=== PATIENT | female | born 1990 | race African-American/Black ===

== ENCOUNTER 2018-07-20 10:08 | Inpatient (IN) | payer OTHER ==
[2018-07-20] MEDS ORDERED: DINOPROSTONE 10 MG VAGINAL SUPPOSITORY VG ONE (11:15)
[2018-07-20] MEDS: DEXTROSE 5%-LACTATED RINGERS 1,000 ML IV SCH ×2 (11:55→17:00)
[2018-07-20 12:00] LABS: BASO % 0.8 % (0-2.0); EOS % 0.8 % (0-4.5); HEMATOCRIT 38.4 % (32.4-45.2); HEMOGLOBIN 13.8 GM/dL (10.7-15.3); LYMPH % 20.7 % (8-40); MCHC 36.1 g/dl (32.0-36.0); MEAN CELL VOLUME 86.1 fl (80-96); MEAN PLT VOLUME 9.7 fl (7.5-11.1); MONO % 8.2 % (3.8-10.2); NEUT % 69.5 % (42.8-82.8); PLATELET COUNT 202 K/MM3 (134-434); RBC 4.46 M/mm3 (3.60-5.2); RDW 13.8 % (11.6-15.6); WHITE BLOOD COUNT 7.6 K/mm3 (4.0-10.0)
[2018-07-20 12:15] LABS: INR 0.96 (0.83-1.09); PROTHROMBIN TIME (PATIENT) 10.9 SEC (9.7-13.0)
[2018-07-20 12:17] LABS: ACTIVATED PTT 30.5 SECONDS (25.2-36.5)
[2018-07-20] MEDS ORDERED: BUTORPHANOL TARTRATE 1 MG/ML VIAL IVPB ONE (12:28)
[2018-07-20] MEDS ORDERED: PROMETHAZINE HCL 25 MG/1 ML VIAL IVPUSH ONE (12:28)
[2018-07-20 12:37] VITALS: BMI 31.9
[2018-07-20 12:47] LABS: ANION GAP 13 MMOL/L (8-16); BLOOD UREA NITROGEN 9 mg/dL (7-18); CALCIUM 8.2 mg/dL (8.5-10.1); CHLORIDE 107 mmol/L (98-107); CO2 20 mmol/L (21-32); CREATININE 0.7 mg/dL (0.55-1.02); GLUCOSE,RANDOM 102 mg/dL (74-106); POTASSIUM 3.7 mmol/L (3.5-5.1); SODIUM 140 mmol/L (136-145)
--- NOTE | 2018-07-20 13:33 | HP ---
Past Medical History - Primary Care Physician PCP:: Abril Cruz - Admission Chief Complaint: 28 yrs , 41.1 weeks by sono & 42 weeks by dates admitted for induction of labor . post term pregn monitored by NST & BPP History of Present Illness: pnc transferred from [facility] . Registered at 31 weeks gestation at 2, [facility] early sono 11/28/17 - 7.2 wks, edc 07/15/18 12/29/17 -12.2 wks edc 07/12/18 03/10/18-22.2 weeks edc 07/12/18 work UP: 05/11/18 ; AB pos, Rpr nr, Hbsag neg, Rubella immune, Sickle neg, varicella iimune, hiv nr, Pap NILM, , hpv, gc/ct neg , quantiferon neg, GCT 106 06/26/2018 h/h 13.7/40.0, plt 200,gc/ct neg, GBS neg . 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 Weeks Gestation by Dates: 42.5 ...EDC by Dates: 06/30/18 ...EDC by Sono: 07/12/18 (41.1 weeks ( 03/10/18--22.2weeks) ) Heme/Onc: No: Anemia Infectious Disease: No: AIDS, HIV, STD's, Tuberculosis Psych: Yes: Other (denies h/o mental illness) - Past Surgical History Past Surgical History: Yes: None Hx Myomectomy: No Hx Transabdominal Cerclage: No - Smoking History Smoking history: Never smoked Have you smoked in the past 12 months: No - Alcohol/Substance Use Hx Alcohol Use: No History of Substance Use: reports: None Home Medications - Allergies Allergies/Adverse Reactions: Allergies Allergy/AdvReac Type Severity Reaction Status Date / Time No Known Allergies Allergy Verified 07/20/18 10:55 - Home Medications Home Medications: Ambulatory Orders Ferrous Sulfate 325 mg PO DAILY 07/18/18 Vitamins (Sjr) - 1 mg PO DAILY 07/18/18 Physical Exam - Maternity Vital Signs: Vital Signs Temperature 98.7 F 07/20/18 11:55 Pulse Rate 80 07/20/18 11:55 Respiratory Rate 17 07/20/18 11:55 Blood Pressure 129/80 07/20/18 11:55 O2 Sat by Pulse Oximetry (%) Selected Entries 07/20/18 10:57 Weight 198 lb Constitutional: Yes: Well Nourished, No Distress Eyes: Yes: WNL HENT: Yes: WNL, Normocephalic Neck: Yes: WNL Cardiovascular: Yes: WNL Breast(s): Yes: WNL - Abdominal Exam/OB Fundal Height: 40 Number of Fetuses: Single Presentation: Vertex Contractions: No Heart Rate (range): 155 Heart Rate Location: [facility] Category: I Accelerations: Uniform Decelerations: None - Vaginal Exam/OB Vaginal Bleediing: No Speculum Exam: No Dilatation (cm): close, Effacement (%): unefface Amniotic Membrane Status: Intact Presentation: Vertex/Position Station: -3 (ant asynlytism) - Physical Exam Musculoskeletal: Yes: WNL Extremities: Yes: WNL. No: Calf Tenderness Edema: LLE: 1+, RLE: 1+ ...Motor Strength: WNL Psychiatric: Yes: WNL, Alert, Oriented - Labs Lab Results: CBC, BMP 07/20/18 11:55 07/20/18 11:55 Laboratory Tests 07/20/18 07/20/18 11:55 11:55 PT with INR 10.90 INR 0.96 PTT (Actin FS) 30.5 RPR Titer Nonreactive Problem List - Problems (1) Post-term , 40-42 weeks of gestation Code(s): O48.0 - POST-TERM (2) Elective induction of labor planned Code(s): UOW6093 - Assessment/Plan 28 yrs , 41.1 weeks by sono is admitted for Induction of labor .GBS neg Plan cervidil inserted at 11.15 AM . trial of vaginal delivery stadol + phenrgan & or epidural for labor analgesia
[2018-07-20] MEDS ORDERED: OXYTOCIN 30 UNITS in 0.9% NS 30 UNIT/500 ML INFUS.BAG IVPB ONE (20:24)
--- NOTE | 2018-07-20 23:12 | PN ---
Progress Note (short form) - Note Progress Note: cervidil removed at 11.00PM cx 1-2 cm/post/50 %/Mi , vx -3 uc 3-5 min FHR 155 bpm cat-1 Selected Entries 07/20/18 22:00 Temperature 98.8 F Pulse Rate 63 Blood Pressure 145/86 Blood Pressure 105 Mean Problem List - Problems (1) Post-term , 40-42 weeks of gestation Code(s): O48.0 - POST-TERM (2) Elective induction of labor planned Code(s): LNY3330 -
[2018-07-20] MEDS ORDERED: SODIUM PHOSPHATE/NA BIPHOS 133 ML ENEMA PR ONE (23:16)
[2018-07-20 23:51] LABS: URINE APPEARANCE CLEAR; URINE BILIRUBIN NEGATIVE (<2.0 mg/dL); URINE COLOR LTYELLOW; URINE GLUCOSE (UA) NEGATIVE (NEGATIVE); URINE KETONE NEGATIVE (NEGATIVE); URINE LEUK ESTERASE NEGATIVE (NEGATIVE); URINE NITRITE NEGATIVE (NEGATIVE); URINE PROTEIN NEGATIVE (NEGATIVE); URINE UROBILINOGEN NEGATIVE mg/dL (0.2-1.0)
[2018-07-21] MEDS ORDERED: OXYTOCIN 30 UNITS in 0.9% NS 30 UNIT/500 ML INFUS.BAG IVPB ONE (00:21)
[2018-07-21] MEDS ORDERED: OXYTOCIN 30 UNITS in 0.9% NS 30 UNIT/500 ML INFUS.BAG IVPB SCH (00:30)
--- NOTE | 2018-07-21 06:39 | PN ---
Progress Note, Labor Vaginal Exam #1 Labor Exam Date: 07/21/18 Labor Exam Time: 06:30 Heart Rate (range): 140 Dilatation: 4 Effacement (%): 90 Amniotic Membrane Status: Intact Presentation: Vertex/Position Station: -2 Remarks: uc 2-3 min fhr cat-1 . epidural labor analgesia Vaginal Exam #2 Labor Exam Date: 07/21/18 Labor Exam Time: 14:05 Heart Rate (range): 140 Dilatation: 9 Effacement (%): 100 Amniotic Membrane Status: Ruptured (AROM clear) Presentation: Vertex/Position Station: -1 (-1/0) Remarks: FHR cat-1 uc 3-4-5 min epidural received at 7.30 AM Selected Entries 07/21/18 07/21/18 07/21/18 13:00 13:15 13:30 Temperature 97.7 F Pulse Rate 64 66 Respiratory 18 Rate Blood Pressure 117/69 122/[address] trial of labor Vaginal Exam #3 Labor Exam Date: 07/21/18 Labor Exam Time: 16:07 Heart Rate (range): 140 Dilatation: rt rim Effacement (%): 100 Amniotic Membrane Status: Ruptured Presentation: Vertex/Position Station: +2 Remarks: fhr cat-1 uc q2 min Selected Entries 07/21/18 16:00 Pulse Rate 85 Respiratory 20 Rate Blood Pressure 137/87 O2 Sat by Pulse 100 Oximetry (%) Vaginal Exam #4 Labor Exam Date: 07/21/18 Labor Exam Time: 17:00 Heart Rate (range): 150 Dilatation: 10 Effacement (%): 100 Amniotic Membrane Status: Ruptured Presentation: Vertex/Position Station: +2 (+2/+3) Remarks: fhr cat-1 uc q 2-3 min pt pushing , not effectively , pt advised not to push, wait for passive descent Selected Entries 07/21/18 17:30 Pulse Rate 80 Blood Pressure 146/92
[2018-07-21] MEDS: ELECTROLYTE-148 SOLN 1,000 ML IV SCH ×2 (06:40→14:30)
[2018-07-21] MEDS ORDERED: FENTANYL/BUPIVACAINE/NS/PF - PCEA - 50 ML DISP.SYRIN EP ONE ×3 (06:53→14:47)
[2018-07-21] MEDS ORDERED: NALOXONE HCL 0.4 MG/ML VIAL IVPUSH PRN (07:46)
[2018-07-21] MEDS ORDERED: FENTANYL/BUPIVACAINE/NS/PF - PCEA - 50 ML DISP.SYRIN EP SCH (08:00)
[2018-07-21] MEDS ORDERED: OXYTOCIN 20 UNITS in 0.9% NS 20 UNIT/1,000 ML INFUS.BAG IV ONE ×2 (09:19→20:00)
[2018-07-21] MEDS ORDERED: BUPIVACAINE HCL/PF 0.25% (2.5MG/ML) 10 ML VIAL ONE (14:45)
[2018-07-21] MEDS ORDERED: BENZOCAINE 28 GM HEMORRHOIDAL OINTMENT TP PRN (18:23)
[2018-07-21] MEDS ORDERED: BISACODYL 10 MG SUPP.RECT RC PRN (18:23)
[2018-07-21] MEDS ORDERED: oxyCODONE HCL 5 MG TABLET PO PRN (18:23)
[2018-07-21] MEDS ORDERED: METHYLERGONOVINE MALEATE 0.2 MG/1 ML AMP IM PRN (18:23)
[2018-07-21] MEDS ORDERED: IBUPROFEN 600 MG TABLET (FP) PO PRN (18:23)
[2018-07-21] MEDS ORDERED: BENZOCAINE 20% 57 GM BOTTLE TP PRN (18:23)
[2018-07-21] MEDS ORDERED: ACETAMINOPHEN 325 MG TABLET (FP) PO PRN (18:23)
[2018-07-21] MEDS ORDERED: WITCH HAZEL 50% (TUCKS) 40 PAD/JAR PAD TP PRN (18:23)
[2018-07-21] MEDS ORDERED: OXYTOCIN 20 UNITS in 0.9% NS 20 UNIT/1,000 ML INFUS.BAG IV SCH (18:30)
--- NOTE | 2018-07-21 18:32 | PN ---
Delivery - Delivery Vaginal Delivery: No Problems, Spontaneous (baby Girl delievered from [place] position, immediate nasal & oral suction was done ,shoulder delievered without difficulty. placenta & membranes delievered completley. 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 GBS neg 07/20/18 Cervidil inserted 07/21/18 pitocin started epidural labor analgesia was given intrapartum course uneventful
[2018-07-21 18:42] LABS: ARTERIAL BLOOD GAS BASE EXCESS -5.2 meq/l (-2-2); ARTERIAL BLOOD GAS PCO2 55.2 mmHg (35-45)
[2018-07-21 18:46] LABS: ARTERIAL BLOOD GAS PO2 12.3 mmHg (80-100); ARTERIAL BLOOD GAS pH 7.24 (7.35-7.45)
[2018-07-21 18:47] LABS: VENOUS PH 7.35 (7.32-7.42)
[2018-07-21 18:48] LABS: VENOUS PC02 40.6 mmHg (38-52)
--- NOTE | 2018-07-22 08:15 | PN ---
Post Progress Note - Subjective Subjective: no c/o headache cramps bleeding yesterday was heavy but today it is less Post Day: 1 Type of Delivery: Vital Signs: Vital Signs Temperature 98.4 F 07/22/18 03:58 Pulse Rate 72 07/22/18 03:58 Respiratory Rate 18 07/22/18 03:58 Blood Pressure 132/79 07/22/18 03:58 O2 Sat by Pulse Oximetry (%) 100 07/21/18 18:45 Selected Entries 07/21/18 07/21/18 07/21/18 19:30 19:45 20:25 Blood Pressure 142/89 132/90 145/89 07/22/18 00:12 Blood Pressure 142/78 Breast Exam: Yes: Soft, Other (BF ). No: Engorged Uterus: Yes: Fundus Firm, Fundus above umbilicus, Non-tender Lochia: Yes: Rubra Lochia, amount: Moderate Extremities: Yes: Calves non-tender Perineum: Yes: Intact Activity: Ambulating - Labs Labs: CBC WBC 7.6 K/mm3 (4.0-10.0) 07/20/18 11:55 RBC 4.46 M/mm3 (3.60-5.2) 07/20/18 11:55 Hgb 13.8 GM/dL (10.7-15.3) 07/20/18 11:55 Hct 38.4 % (32.4-45.2) 07/20/18 11:55 MCV 86.1 fl (80-96) 07/20/18 11:55 MCH 31.0 pg (25.7-33.7) 07/20/18 11:55 MCHC 36.1 g/dl (32.0-36.0) H 07/20/18 11:55 RDW 13.8 % (11.6-15.6) 07/20/18 11:55 Plt Count 202 K/MM3 (134-434) 07/20/18 11:55 MPV 9.7 fl (7.5-11.1) 07/20/18 11:55 Absolute Neuts (auto) 5.3 K/mm3 (1.5-8.0) 07/20/18 11:55 Neutrophils % 69.5 % (42.8-82.8) 07/20/18 11:55 Lymphocytes % 20.7 % (8-40) 07/20/18 11:55 Monocytes % 8.2 % (3.8-10.2) 07/20/18 11:55 Eosinophils % 0.8 % (0-4.5) 07/20/18 11:55 Basophils % 0.8 % (0-2.0) 07/20/18 11:55 Nucleated RBC % 0 % (0-0) 07/20/18 11:55 Problem List - Problems (1) Post-term , 40-42 weeks of gestation Code(s): O48.0 - POST-TERM (2) Elective induction of labor planned Code(s): MXT2114 - (3) Normal vaginal delivery Code(s): O80 - ENCOUNTER FOR FULL-TERM UNCOMPLICATED DELIVERY (4) Encounter for visit Code(s): Z39.2 - ENCOUNTER FOR ROUTINE FOLLOW-UP Assessment/Plan intrapartum & immediate pp slight elevation of BP was noted , possible because she was anxious . UA neg for proteinuria now BP wnl , pt is calm. Labs pending discharge tomorrow.
[2018-07-22 08:31] LABS: BASO % 0.4 % (0-2.0); EOS % 0.3 % (0-4.5); HEMOGLOBIN 10.7 GM/dL (10.7-15.3); LYMPH % 15.8 % (8-40); MCH 30.6 pg (25.7-33.7); MCHC 35.8 g/dl (32.0-36.0); MEAN CELL VOLUME 85.6 fl (80-96); MEAN PLT VOLUME 9.3 fl (7.5-11.1); MONO % 7.7 % (3.8-10.2); NEUT % 75.8 % (42.8-82.8); PLATELET COUNT 158 K/MM3 (134-434); RDW 13.6 % (11.6-15.6); WHITE BLOOD COUNT 12.1 K/mm3 (4.0-10.0)
[2018-07-22] MEDS: FERROUS SO4 325 MG TABLET (FP) PO SCH ×2 (08:42→17:26)
[2018-07-22 08:56] LABS: ALBUMIN 2.3 g/dl (3.4-5.0); ANION GAP 7 MMOL/L (8-16); BILIRUBIN,TOTAL 1.4 mg/dL (0.2-1.0); BLOOD UREA NITROGEN 6 mg/dL (7-18); CALCIUM 8.1 mg/dL (8.5-10.1); CHLORIDE 108 mmol/L (98-107); CO2 23 mmol/L (21-32); CREATININE 0.6 mg/dL (0.55-1.02); GLUCOSE,RANDOM 66 mg/dL (74-106); POTASSIUM 3.9 mmol/L (3.5-5.1); SGOT/AST 25 U/L (15-37); SGPT/ALT 17 U/L (12-78); SODIUM 138 mmol/L (136-145); TOT PROT 4.9 g/dl (6.4-8.2); URIC ACID 3.2 mg/dL (2.6-7.2)
[2018-07-22 08:57] LABS: ALK PHOS 88 U/L (45-117)
[2018-07-22] MEDS: PRENATAL VITAMINS W/ FOLIC ACID TABLET (FP) PO SCH ×2 (09:43→10:00)
[2018-07-22] MEDS ORDERED: DIPHTH,PERTUSS(ACELL),TET 0.5 ML DISP.SYRIN IM ONE (10:00)
[2018-07-22] MEDS ORDERED: SENNOSIDES/DOCUSATE COMBO (SENNA PLUS) TABLET (UD) PO PRN (22:00)
[2018-07-23 08:57] VITALS: BP 126/81; PULSE 63; TEMP 98.3
[2018-07-23] MEDS: FERROUS SO4 325 MG TABLET (FP) PO SCH (09:08)
[2018-07-23] MEDS: PRENATAL VITAMINS W/ FOLIC ACID TABLET (FP) PO SCH (09:08)
--- NOTE | 2018-07-23 10:14 | DS ---
Physical Exam-[employer]ER Vital Signs: Vital Signs Temperature 98.3 F 07/23/18 08:53 Pulse Rate 63 07/23/18 08:53 Respiratory Rate 20 07/23/18 08:53 Blood Pressure 126/81 07/23/18 08:53 O2 Sat by Pulse Oximetry (%) 100 07/22/18 08:49 Constitutional: Yes: Well Nourished Eyes: Yes: Conjunctiva Clear HENT: Yes: Atraumatic Neck: Yes: Supple Cardiovascular: Yes: Regular Rate and Rhythm Respiratory: Yes: Regular Gastrointestinal: Yes: Normal Bowel Sounds External Genitalia: Yes: Normal Vaginal Exam: Yes: Normal Cervix: Yes: Normal Uterus: Yes: Firm ....Post : Yes: Uterus firm Breast(s): Yes: WNL Musculoskeletal: Yes: WNL Extremities: Yes: WNL Neurological: Yes: Alert, Oriented ...Motor Strength: WNL Psychiatric: Yes: Alert, Oriented Labs: CBC, BMP 07/22/18 07:45 07/22/18 07:45 Delivery - Delivery Vaginal Delivery: No Problems, Spontaneous (baby Girl delievered from [place] position, immediate nasal & oral suction was done ,shoulder delievered without difficulty. placenta & membranes delievered completley. 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: No Gender: Female Weight: 7 lb Position: Left, OA Total Hours ROM (Hrs/Mins): 3hrs 50min - 1 Minute Total Score: 9 5 Minutes Total Score: 9 - Feeding Plan Initial Plan: Exclusive throughout hospitalization Discharge Summary Reason For Visit: CERVICAL INDUCTION Current Active Problems Elective induction of labor planned (Acute) Encounter for visit (Acute) Normal vaginal delivery (Acute) Post-term , 40-42 weeks of gestation (Acute) Procedures: Principal: Normal spontaneous vaginal delivery Hospital Course: Routine care Condition: Stable - Instructions Diet, Activity, Other Instructions: Post Instructions DIET: Continue good diet high in protein, calcium, and iron rich foods. Drink at least eight (8) glasses of water daily in addition to other fluids. ct Regular diet MEDICATIONS: Continue vitamins and iron as previously directed. Motrin and Tylenol may be taken for minor discomfort. ACTIVITY: Mild to moderate exercise may be started in two (2) weeks. Take frequent rest periods. Resume normal activity after six (6) week check up. WOUND CARE OF OPERATIVE SITE: Continue use of perineal bottle until vaginal discharge stops. Keep area clean. Shower daily. Keep abdominal wound dry. Report any drainage or redness to physician. Tub baths, tampons and douches are not permitted for [address] Breast feeding & or Bottle feeding BREAST CARE: (For those that are not breast feeding): If engorgement occurs: Wear tight fitting bra. Take Tylenol or Motrin for pain. Apply cold packs (ice in bags to each breast ) FAMILY PLANNING: There are many control alternatives to pursue and they should be discussed at your first office visit. You may resume sexual activity after your six (6) week check up. (Remember, breast feeding is not a contraceptive) NEXT PHYSICIAN APPOINTMENT: Be certain to call for a six (6) week appointment, unless otherwise directed. Call Clinic or got to Emergency Dept if you have any of the following: Heavy vaginal bleeding Painful urination Leg pain Unusual odor noted to vaginal bleeding High fever Red streaking noted on breast return to clinic in 6 weeks. call [facility] for appointment. [phone] Referrals: Abril Cruz MD [Staff Physician] - Disposition: HOME - Home Medications Comprehensive Discharge Medication List: Ambulatory Orders Ferrous Sulfate 325 mg PO DAILY 07/18/18 Vitamins (Sjr) - 1 mg PO DAILY 07/18/18 Acetaminophen [Tylenol .Regular Strength -] 650 mg PO Q3H PRN tablet 07/22/18 Ferrous Sulfate [Feosol] 325 mg PO BIDWM #60 tab 07/22/18 Ibuprofen [Motrin -] 200 mg PO Q4H PRN tablet 07/22/18 Vitamins (Sjr) - 1 tab PO DAILY tablet 07/22/18
== END 2018-07-23 13:40 | disposition home or self-care (01) | DRG 560 ==
LOC: JDEL 10:08 → JLDR 11:10 → J3W 07-21 20:15
PROVIDERS: ADMIT Obstetrics & Gynecology; ATTEND Obstetrics & Gynecology
PROC: 10E0XZZ Delivery of Products of Conception, External Approach (ICD-10-PCS; principal; 2018-07-21)
PROC: 3E0P7VZ Introduction of Hormone into Female Reproductive, Via Natural or Artificial Opening (ICD-10-PCS; 2018-07-21)
DX: O48.0 Post-term pregnancy (principal); Z3A.40 40 weeks gestation of pregnancy; Z37.0 Single live birth
CPT/HCPCS: 36415; 36600; 59409; 80048; 80053; 81003; 82803; 84550; 85025; 85610; 85730; 86593; 86850; 86900; 86901; 90715